=== PATIENT | female | born 1945 | race Caucasian/White ===

== ENCOUNTER → 2016-05-31 | Outpatient (CLI) | payer BC ==
[~2016-05-31] MED LIST: ALLGUNK; LRT5 PO; SULF800T23 PO; ZCRUNK
[2016-05-31 15:48] LABS: BASO % 0.2 %; BASO ABS # 0.01 K/uL (0-0.2); COMPLETE YES; EOS % 0.7 %; HEMATOCRIT 46.5 % (37-47); IG% 0.2 %; MEAN CELL VOLUME 84.2 fL (80-100); MEAN CORPUSCULAR HEMOGLOBIN 29.5 pg (25-34); MEAN CORPUSCULAR HGB CONC 35.1 g/dl (32-36); MEAN PLATELET VOLUME 9.7 fL (7.4-10.4); MONO % 6.8 %; NEUT % 70.1 %; PLATELET COUNT 183 K/uL (130-400); RED BLOOD COUNT 5.52 M/uL (4.2-5.4); WHITE BLOOD COUNT 5.91 K/uL (4.8-10.8)
[2016-05-31 16:09] LABS: ALT/SGPT 29 U/L (12-78); AST/SGOT 25 U/L (15-37); BLOOD UREA NITROGEN 11 mg/dl (7-18); BUN/CREATININE RATIO 12.8 (10-20); CALCIUM 9.4 mg/dl (8.5-10.1); CARBON DIOXIDE 27 mmol/L (21-32); CHLORIDE 102 mmol/L (98-107); CHOLESTEROL 172 mg/dl (0-200); CREATININE 0.89 mg/dl (0.60-1.20); GLUCOSE 98 mg/dl (70-99); POTASSIUM 4.5 mmol/L (3.5-5.1); SODIUM 139 mmol/L (136-145); TRIGLYCERIDES 118 mg/dl (0-150); VERY LOW DENSITY LIPOPROT CALC 24 mg/dl
[2016-05-31 16:17] LABS: ALKALINE PHOSPHATASE 90 U/L (45-117); HDL CHOLESTEROL 57 mg/dl; LDL CHOLESTEROL CALCULATED 91 mg/dl
== END | disposition home or self-care (01) ==
LOC: C.LAB1850 15:01 → EDSTATUS 15:21
PROVIDERS: ATTEND Internal Medicine
DX: R52 Pain, unspecified (principal); E78.00 Pure hypercholesterolemia, unspecified; E55.9 Vitamin D deficiency, unspecified

== ENCOUNTER → 2016-06-01 | Outpatient (CLI) | payer BC | END | disposition home or self-care (01) | LOC: C.LAB 11:25 | PROVIDERS: ATTEND Family Medicine | DX: R52 Pain, unspecified (principal) ==

== ENCOUNTER → 2016-10-31 | Outpatient (CLI) | payer BC ==
--- NOTE | 2016-10-31 13:49 | MAMMOGRAPHY REPORT ---
BILATERAL DIGITAL SCREENING MAMMOGRAM WITH CAD: 10/31/2016 CLINICAL HISTORY: Routine screening. Patient has no complaints. TECHNIQUE: Current study was also evaluated with a Computer Aided Detection (CAD) system. Bilateral CC and MLO views were obtained. COMPARISON: Comparison is made to exams dated: 07/26/2015 mammogram, 07/20/2014 mammogram, 07/14/2013 m ammogram, 07/13/2012 mammogram, 06/25/2011 mammogram - [facility], and 09/20/2008. BREAST COMPOSITION: There are scattered areas of fibroglandular density in both breasts. FINDINGS: No suspicious masses, calcifications, or areas of architectural distortion are noted in ei ther breast. There has been no significant interval change compared to prior exams. IMPRESSION: ACR BI-RADS CATEGORY 1: NEGATIVE There is no mammographic evidence of malignancy. A 1 year screening mammogram is recommended. The pa tient will receive written notification of the results. Approximately 10% of breast cancers are not detected with mammography. A negative mammographic report should not delay biopsy if a clinically suggestive mass is present. Karen Reza M.D. /:10/31/2016 09:19:28 Slip Presser: Marlene MCCAULEY(Blair)(M), [facility] letter sent: Normal 1/2 BI-RADS Code: ACR BI-RADS Category 1: Negative
== END | disposition home or self-care (01) ==
LOC: C.MAMM 09:00
PROVIDERS: ATTEND Obstetrics & Gynecology
DX: Z12.31 Encounter for screening mammogram for malignant neoplasm of breast (principal)

== ENCOUNTER → 2017-01-24 | Outpatient (CLI) | payer BC | END | disposition home or self-care (01) | LOC: C.PAPS 14:29 | PROVIDERS: ATTEND Obstetrics & Gynecology | DX: Z12.4 Encounter for screening for malignant neoplasm of cervix (principal) ==

== ENCOUNTER → 2017-12-19 | Outpatient (CLI) | payer BC ==
[2017-12-19 13:16] LABS: BASO % 0.3 %; BASO ABS # 0.02 K/uL (0-0.2); EOS % 1.7 %; EOS ABS # 0.13 K/uL (0-0.5); HEMATOCRIT 45.4 % (37-47); HEMOGLOBIN 15.6 g/dL (12.0-16.0); IG# 0.01 K/uL (0.00-0.02); LYMPH % 35.8 %; LYMPH ABS # 2.71 K/uL (1.2-3.4); MEAN CELL VOLUME 85.8 fL (80-100); MEAN CORPUSCULAR HEMOGLOBIN 29.5 pg (25-34); MEAN CORPUSCULAR HGB CONC 34.4 g/dl (32-36); MEAN PLATELET VOLUME 10.1 fL (7.4-10.4); MONO % 4.5 %; MONO ABS # 0.34 K/uL (0.11-0.59); NEUT % 57.6 %; NEUT ABS # 4.36 K/uL (1.4-6.5); PLATELET COUNT 225 K/uL (130-400); RED CELL DISTRIBUTION WIDTH CV 12.9 % (11.5-14.5); RED CELL DISTRIBUTION WIDTH SD 40.5 fL (36.4-46.3); WHITE BLOOD COUNT 7.57 K/uL (4.8-10.8)
[2017-12-19 14:00] LABS: ALBUMIN 4.1 gm/dl (3.4-5.0); ALKALINE PHOSPHATASE 90 U/L (45-117); ALT/SGPT 28 U/L (12-78); AST/SGOT 21 U/L (15-37); BLOOD UREA NITROGEN 19 mg/dl (7-18); CALCIUM 9.6 mg/dl (8.5-10.1); CARBON DIOXIDE 28 mmol/L (21-32); CHOLESTEROL 132 mg/dl (0-200); CREATININE 0.79 mg/dl (0.60-1.20); GLUCOSE 96 mg/dl (70-99); LDL CHOLESTEROL CALCULATED 70 mg/dl; SODIUM 140 mmol/L (136-145); TOTAL PROTEIN 8.3 gm/dl (6.4-8.2)
== END | disposition home or self-care (01) ==
LOC: C.LAB1850 10:52
PROVIDERS: ATTEND Internal Medicine
DX: E78.00 Pure hypercholesterolemia, unspecified (principal); E55.9 Vitamin D deficiency, unspecified; D58.2 Other hemoglobinopathies